=== PATIENT | female | born 1980 | race Caucasian/White ===

== ENCOUNTER → 2016-08-18 | Outpatient (CLI) | payer BC ==
[2016-08-18 19:20] VITALS: BP 122/83
== END ==
LOC: MHUC 18:38
PROVIDERS: ATTEND Physician Assistant
DX: J02.8 Acute pharyngitis due to other specified organisms (principal)
CPT/HCPCS: 99213

== ENCOUNTER → 2016-09-07 | Outpatient (CLI) | payer BC ==
[~2016-09-07] MED LIST: AC500T PO; AZIT250T81 PO; BUDE6HFA INH; CLIN-78 PO; DUONEB 0.5 MG-33 ML IH; FERR-74 PO; GUAI600T3 PO; HYDR-3811 PO; HYDR473S17 PO; NAPR220T76 PO; NIZA300C3 PO; NORE0.354 PO; OMEP20TA PO; PNV1CAPS13 PO; PRED20TA PO; PREN-94 PO; SULF-228 PO; [UNRECOGNIZED DRUG - REMARK]
[2016-09-07 13:23] VITALS: BP 132/78
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
== END ==
LOC: MHUC 13:01
PROVIDERS: ATTEND Physician Assistant
DX: J00 Acute nasopharyngitis [common cold] (principal)
CPT/HCPCS: 99213